=== PATIENT | male | born 1975 | race Caucasian/White ===

== ENCOUNTER 2024-01-08 10:19 | Emergency (ER) | payer BC, OTHER ==
[2024-01-08 10:30] VITALS: BP 156/92; PULSE 108; RESP 18; TEMP 97.8; BMI 25.7
[2024-01-08 11:41] LABS: BASO % 0.9 % (0-2.0); EOS % 1.4 % (0-4.5); HEMATOCRIT 45.2 % (35.4-49); HEMOGLOBIN 15.9 GM/dL (11.7-16.9); LYMPH % 24.8 % (8-40); MCH 32.2 pg (25.7-33.7); MCHC 35.1 g/dl (32.0-35.9); MEAN CELL VOLUME 91.7 fl (80-96); MEAN PLT VOLUME 6.8 fl (7.5-11.1); NEUT % 63.9 % (42.8-82.8); PLATELET COUNT 279 10^3/uL (134-434); RBC 4.94 M/mm3 (4.00-5.60); RDW 12.9 % (11.9-15.9); WHITE BLOOD COUNT 7.2 K/mm3 (4.0-10.0)
[2024-01-08 11:59] LABS: POTASSIUM 4.1 mmol/L (3.5-5.1)
[2024-01-08 12:02] LABS: ALBUMIN 3.4 g/dl (3.4-5.0); BLOOD UREA NITROGEN 5.1 mg/dL (7-18)
[2024-01-08 12:04] LABS: CREATININE 0.7 mg/dL (0.55-1.3)
[2024-01-08 12:07] LABS: BILIRUBIN,TOTAL 0.5 mg/dL (0.2-1); TOT PROT 7.6 g/dl (6.4-8.2)
[2024-01-08 12:17] LABS: ERYTHROCYTE SEDIMENTATION RATE 48 mm/hr (0-10)
[2024-01-08] MEDS ORDERED: CEFAZOLIN SODIUM 2 GM VIAL ONE ×2 (12:18→12:20)
[2024-01-08] MEDS ORDERED: CEFTRIAXONE 1 GM/50 ML BAG ONE (12:18)
[2024-01-08] MEDS: CEFAZOLIN SODIUM 2 GM in DEXTROSE 5%-WATER 100 ML IVPB ONE (12:22)
== END 2024-01-08 13:24 | disposition home or self-care (01) ==
LOC: JER 10:19
DX: L03.031 Cellulitis of right toe (principal)
CPT/HCPCS: 36415; 73630-TC-RT-FY; 80053; 82962; 85025; 85651; 86140; 87040; 87070; 87077; 87186; 87205; 99284-25

== ENCOUNTER 2024-01-31 21:28 | Emergency (ER) | payer BC, OTHER ==
[2024-01-31 21:37] VITALS: BP 128/98; PULSE 78; RESP 19; TEMP 98.6; BMI 25.7
== END 2024-01-31 22:38 | disposition home or self-care (01) ==
LOC: JERFT 21:28
DX: E11.621 Type 2 diabetes mellitus with foot ulcer (principal); L97.518 Non-pressure chronic ulcer of other part of right foot with other specified severity; Z48.00 Encounter for change or removal of nonsurgical wound dressing
CPT/HCPCS: 82962; 99283-25

== ENCOUNTER 2024-02-01 17:07 | Inpatient (IN) | payer BC, OTHER ==
[2024-02-01 18:32] LABS: BASO % 0.5 % (0-2.0); EOS % 1.3 % (0-4.5); HEMATOCRIT 43.3 % (35.4-49); HEMOGLOBIN 15.1 GM/dL (11.7-16.9); LYMPH % 18.4 % (8-40); MCH 32.6 pg (25.7-33.7); MCHC 34.8 g/dl (32.0-35.9); MEAN CELL VOLUME 93.6 fl (80-96); MONO % 9.6 % (3.8-10.2); NEUT % 70.2 % (42.8-82.8); PLATELET COUNT 248 10^3/uL (134-434); RBC 4.63 M/mm3 (4.00-5.60); RDW 12.8 % (11.9-15.9); WHITE BLOOD COUNT 8.1 K/mm3 (4.0-10.0)
[2024-02-01 18:38] LABS: INR 1.04 (0.83-1.09)
[2024-02-01 18:47] LABS: POTASSIUM 4.2 mmol/L (3.5-5.1)
[2024-02-01 18:48] LABS: CALCIUM 8.8 mg/dL (8.5-10.1)
[2024-02-01] MEDS ORDERED: VANCOMYCIN 1,000 MG in DEXTROSE 5%-WATER - 250 ML IVPB ONE (18:48)
[2024-02-01 18:49] LABS: BLOOD UREA NITROGEN 8.3 mg/dL (7-18)
[2024-02-01 18:52] LABS: CREATININE 0.7 mg/dL (0.55-1.3)
[2024-02-01 18:54] LABS: BILIRUBIN,TOTAL 0.7 mg/dL (0.2-1); TOT PROT 7.7 g/dl (6.4-8.2)
[2024-02-01] MEDS: PIPERACILLIN/TAZOB 4.5 GM 4.5 GM in DEXTROSE 5%-WATER 100 ML IVPB ONE (19:23)
[2024-02-01] MEDS: ACETAMINOPHEN 1000 MG/100 ML BAG IVPB ONE (19:23)
[2024-02-01] MEDS ORDERED: PIPERACILLIN/TAZOB 4.5 GM 4.5 GM/100 ML BAG IVPB ONE (19:23)
[2024-02-01 20:08] LABS: ERYTHROCYTE SEDIMENTATION RATE 72 mm/hr (0-10)
[2024-02-01] MEDS: VANCOMYCIN/WATER FOR INJ (PEG) 1,000 MG/200 ML BAG IVPB ONE (22:12)
[2024-02-02 00:21] VITALS: BMI 26.4
[2024-02-02 09:44] LABS: BASO % 0.6 % (0-2.0); EOS % 1.8 % (0-4.5); HEMATOCRIT 40.1 % (35.4-49); LYMPH % 24.1 % (8-40); MCH 32.8 pg (25.7-33.7); MCHC 34.9 g/dl (32.0-35.9); MEAN CELL VOLUME 93.9 fl (80-96); MEAN PLT VOLUME 7.3 fl (7.5-11.1); MONO % 9.1 % (3.8-10.2); NEUT % 64.4 % (42.8-82.8); PLATELET COUNT 242 10^3/uL (134-434); RBC 4.27 M/mm3 (4.00-5.60); RDW 12.5 % (11.9-15.9); WHITE BLOOD COUNT 8.1 K/mm3 (4.0-10.0)
[2024-02-02 10:57] LABS: ALBUMIN 2.6 g/dl (3.4-5.0); BLOOD UREA NITROGEN 7.9 mg/dL (7-18); CALCIUM 8.5 mg/dL (8.5-10.1)
[2024-02-02 10:58] LABS: MAGNESIUM 1.9 mg/dL (1.8-2.4)
[2024-02-02 11:00] LABS: CREATININE 0.7 mg/dL (0.55-1.3); PHOSPHOROUS 2.9 mg/dL (2.5-4.9)
[2024-02-02 11:02] LABS: BILIRUBIN,TOTAL 0.9 mg/dL (0.2-1); TOT PROT 7.1 g/dl (6.4-8.2)
[2024-02-02] MEDS: CEFAZOLIN 1 GM in DEXTROSE 5%-WATER - 50 ML IVPB SCH (14:10)
[2024-02-02] MEDS: COLLAGENASE CLOSTRIDIUM HIST. 30 GRAMS TUBE TP SCH (15:31)
[2024-02-02] MEDS: INSULIN ASPART SLIDING SCALE (NOVOLOG) 1 VIAL SQ SCH (21:27)
[2024-02-02] MEDS: INSULIN (LEVEMIR) 100 UNITS/ML UNITS SQ SCH (21:27)
[2024-02-03] MEDS: LEVOTHYROXINE NA 50 MCG TABLET (FP) PO SCH (06:33)
[2024-02-03] MEDS: INSULIN ASPART SLIDING SCALE (NOVOLOG) 1 VIAL SQ SCH (06:34)
[2024-02-03] MEDS: INSULIN (LEVEMIR) 100 UNITS/ML UNITS SQ SCH ×2 (06:35→21:24)
[2024-02-03] MEDS ORDERED: LEVOTHYROXINE NA 25 MCG TABLET (FP) PO SCH (07:00)
[2024-02-05] MEDS ORDERED: ACETAMINOPHEN 325 MG TABLET (FP) PO PRN (09:58)
[2024-02-05] MEDS: VANCOMYCIN/WATER 1250 MG 1,250 MG/250 ML BAG IVPB SCH (11:56)
[2024-02-05] MEDS: GABAPENTIN 300 MG CAPSULE PO SCH (13:40)
[2024-02-05] MEDS ORDERED: INSULIN ASPART SLIDING SCALE (NOVOLOG) 1 VIAL SQ ONE (16:49)
[2024-02-07] MEDS ORDERED: INSULIN (LEVEMIR) 100 UNITS/ML UNITS SQ ONE (08:54)
[2024-02-07] MEDS: INSULIN (LEVEMIR) 100 UNITS/ML UNITS SQ SCH ×2 (08:57→22:10)
[2024-02-07] MEDS ORDERED: LIDOCAINE HCL 1%, 10 MG/ML (20ML VIAL) ONE (15:45)
[2024-02-07] MEDS ORDERED: GENTAMICIN SO4 80 MG/2 ML VIAL ONE (15:45)
[2024-02-07] MEDS ORDERED: ONDANSETRON 4 MG/2 ML VIAL IVPUSH PRN ×2 (16:03→17:27)
[2024-02-07] MEDS ORDERED: MIDAZOLAM HCL 2 MG/2 ML SINGLE DOSE VIAL ONE (16:07)
[2024-02-07] MEDS ORDERED: ONDANSETRON 4 MG/2 ML VIAL ONE (16:07)
[2024-02-07] MEDS ORDERED: PROPOFOL 20 ML ONE (16:07)
[2024-02-07] MEDS ORDERED: KETOROLAC TROMETHAMINE 30 MG/1 ML VIAL ONE (16:44)
[2024-02-07] MEDS ORDERED: VANCOMYCIN 1,000 MG VIAL (RESTRICTED TO ID ONLY) ONE (16:45)
[2024-02-07] MEDS: VANCOMYCIN 1,000 MG VIAL (RESTRICTED TO ID ONLY) IVPB ONE (16:49)
[2024-02-07] MEDS: LIDOCAINE HCL 1%, 10 MG/ML (20ML VIAL) INF ONE (16:56)
[2024-02-07] MEDS: LACTATED RINGERS SOLUTION 1,000 ML IV SCH ×2 (17:09→20:02)
[2024-02-07 21:37] VITALS: RESP 18
[2024-02-07] MEDS: GABAPENTIN 300 MG CAPSULE PO SCH (22:04)
[2024-02-07] MEDS: INSULIN ASPART SLIDING SCALE (NOVOLOG) 1 VIAL SQ SCH (22:08)
[2024-02-07] MEDS: VANCOMYCIN/WATER 1250 MG 1,250 MG/250 ML BAG IVPB SCH (23:52)
[2024-02-08] MEDS: INSULIN (LEVEMIR) 100 UNITS/ML UNITS SQ SCH (06:21)
[2024-02-08] MEDS: LEVOTHYROXINE NA 50 MCG TABLET (FP) PO SCH (06:24)
[2024-02-09 10:20] LABS: HEMOGLOBIN 13.5 GM/dL (11.7-16.9); MCH 32.9 pg (25.7-33.7); MCHC 35.5 g/dl (32.0-35.9); MEAN CELL VOLUME 92.8 fl (80-96); MEAN PLT VOLUME 7.9 fl (7.5-11.1); PLATELET COUNT 264 10^3/uL (134-434); RDW 12.5 % (11.9-15.9); WHITE BLOOD COUNT 8.2 K/mm3 (4.0-10.0)
[2024-02-09 10:37] LABS: CALCIUM 8.8 mg/dL (8.5-10.1)
[2024-02-09 10:38] LABS: ALBUMIN 2.5 g/dl (3.4-5.0); BLOOD UREA NITROGEN 9.9 mg/dL (7-18)
[2024-02-09 10:41] LABS: CREATININE 0.7 mg/dL (0.55-1.3)
[2024-02-09 10:42] LABS: BILIRUBIN,TOTAL 0.8 mg/dL (0.2-1); TOT PROT 6.6 g/dl (6.4-8.2)
[2024-02-09] MEDS: DAPTOMYCIN 700 MG in SODIUM CHLORIDE 50 ML IVPB SCH (15:51)
[2024-02-09] MEDS ORDERED: INSULIN (LEVEMIR) 100 UNITS/ML UNITS SQ ONE (16:32)
[2024-02-09] MEDS: ACETAMINOPHEN 325 MG TABLET (FP) PO PRN (22:31)
[2024-02-10 09:16] VITALS: BP 145/85; PULSE 81; TEMP 97.7
== END 2024-02-10 12:56 | disposition home or self-care (01) | DRG 623 ==
LOC: JER 17:07 → JERBED 19:13 → J6S 20:08
PROVIDERS: ATTEND Family Medicine
PROC: 0JBQ0ZZ Excision of Right Foot Subcutaneous Tissue and Fascia, Open Approach (ICD-10-PCS; 2024-02-07)
PROC: 0QBQ0ZX Excision of Right Toe Phalanx, Open Approach, Diagnostic (ICD-10-PCS; 2024-02-07)
PROC: 0KBT0ZZ Excision of Left Lower Leg Muscle, Open Approach (ICD-10-PCS; 2024-02-07)
PROC: 0KBS0ZZ Excision of Right Lower Leg Muscle, Open Approach (ICD-10-PCS; 2024-02-07)
PROC: 0JBR0ZZ Excision of Left Foot Subcutaneous Tissue and Fascia, Open Approach (ICD-10-PCS; principal; 2024-02-07 15:00)
PROC: 05HY33Z Insertion of Infusion Device into Upper Vein, Percutaneous Approach (ICD-10-PCS; 2024-02-09)
DX: E11.621 Type 2 diabetes mellitus with foot ulcer (principal); L03.115 Cellulitis of right lower limb; M86.171 Other acute osteomyelitis, right ankle and foot; E11.69 Type 2 diabetes mellitus with other specified complication; E03.9 Hypothyroidism, unspecified; L97.519 Non-pressure chronic ulcer of other part of right foot with unspecified severity; L97.529 Non-pressure chronic ulcer of other part of left foot with unspecified severity; E11.65 Type 2 diabetes mellitus with hyperglycemia; E11.40 Type 2 diabetes mellitus with diabetic neuropathy, unspecified
CPT/HCPCS: 36415; 36569; 71045-TC-FY; 73630-TC-LT; 73630-TC-RT-FY; 73718-TC-RT; 80053; 80061; 82550; 82962; 83036; 83735; 84100; 84439; 84443; 84484; 85025; 85027; 85610; 85651; 85730; 86140; 86850; 86900; 86901; 87070; 87075; 87076; 87077; 87186; 87205; 88304-TC; 88311-TC; 93005; 93010; 93306-TC; 93926-TC; 94760; 99285-25; J0878

== ENCOUNTER 2024-02-17 11:51 | Inpatient (IN) | payer BC, OTHER ==
[2024-02-17 13:10] LABS: BASO % 0.8 % (0-2.0); EOS % 2.6 % (0-4.5); HEMATOCRIT 36.1 % (35.4-49); HEMOGLOBIN 12.4 GM/dL (11.7-16.9); LYMPH % 19.6 % (8-40); MCH 31.8 pg (25.7-33.7); MCHC 34.3 g/dl (32.0-35.9); MEAN CELL VOLUME 92.7 fl (80-96); PLATELET COUNT 287 10^3/uL (134-434); RBC 3.89 M/mm3 (4.00-5.60); RDW 12.6 % (11.9-15.9); WHITE BLOOD COUNT 7.6 K/mm3 (4.0-10.0)
[2024-02-17 13:19] LABS: INR 1.09 (0.83-1.09); PROTHROMBIN TIME (PATIENT) 12.5 SEC (9.7-13.0)
[2024-02-17 13:22] LABS: ACTIVATED PTT 30.8 SECONDS (25.2-36.5)
[2024-02-17 13:32] LABS: POTASSIUM 3.8 mmol/L (3.5-5.1)
[2024-02-17 13:34] LABS: CALCIUM 8.1 mg/dL (8.5-10.1)
[2024-02-17 13:35] LABS: ALBUMIN 2.5 g/dl (3.4-5.0)
[2024-02-17 13:38] LABS: CREATININE 0.9 mg/dL (0.55-1.3)
[2024-02-17 13:39] LABS: BILIRUBIN,TOTAL 0.4 mg/dL (0.2-1); TOT PROT 6.6 g/dl (6.4-8.2)
[2024-02-17 14:00] LABS: ERYTHROCYTE SEDIMENTATION RATE 89 mm/hr (0-10)
[2024-02-17] MEDS ORDERED: HEPARIN NA (PORCINE) 5,000 UNITS/ML 1ML VIAL ONE (14:00)
[2024-02-17] MEDS ORDERED: GABAPENTIN 300 MG CAPSULE ONE (14:00)
[2024-02-17] MEDS: HEPARIN NA (PORCINE) 5,000 UNITS/ML 1ML VIAL SQ SCH (14:06)
[2024-02-17] MEDS: GABAPENTIN 300 MG CAPSULE PO SCH (14:06)
[2024-02-17] MEDS ORDERED: CEFTRIAXONE 2 GM/100 ML BAG IVPB ONE (14:11)
[2024-02-17] MEDS: CEFTRIAXONE 2,000 MG in DEXTROSE 5%-WATER - 50 ML IVPB ONE (14:21)
[2024-02-17] MEDS: VANCOMYCIN PREMIX 1.5 GM 1,500 MG/300 ML BAG IVPB ONE (15:26)
[2024-02-17] MEDS: VANCOMYCIN 1,500 MG in DEXTROSE 5%-WATER - 250 ML IVPB ONE (17:05)
[2024-02-17] MEDS: INSULIN ASPART SLIDING SCALE (NOVOLOG) 1 VIAL SQ SCH (18:23)
[2024-02-17 22:40] VITALS: BMI 27.7
[2024-02-17] MEDS: ROSUVASTATIN CA 5 MG TABLET PO SCH (22:51)
[2024-02-17] MEDS: INSULIN (LEVEMIR) 100 UNITS/ML UNITS SQ SCH (22:54)
[2024-02-18] MEDS: LEVOTHYROXINE NA 50 MCG TABLET (FP) PO SCH (06:29)
[2024-02-18 07:28] LABS: EOS % 4.2 % (0-4.5); HEMOGLOBIN 12.2 GM/dL (11.7-16.9); LYMPH % 25.7 % (8-40); MCH 31.7 pg (25.7-33.7); MCHC 33.9 g/dl (32.0-35.9); MEAN CELL VOLUME 93.4 fl (80-96); MEAN PLT VOLUME 6.8 fl (7.5-11.1); MONO % 8.7 % (3.8-10.2); NEUT % 60.4 % (42.8-82.8); PLATELET COUNT 301 10^3/uL (134-434); RBC 3.85 M/mm3 (4.00-5.60); RDW 12.3 % (11.9-15.9); WHITE BLOOD COUNT 7.1 K/mm3 (4.0-10.0)
[2024-02-18 07:56] LABS: POTASSIUM 3.7 mmol/L (3.5-5.1)
[2024-02-18 07:59] LABS: CALCIUM 8.6 mg/dL (8.5-10.1)
[2024-02-18 08:00] LABS: ALBUMIN 2.6 g/dl (3.4-5.0)
[2024-02-18 08:01] LABS: BLOOD UREA NITROGEN 5.5 mg/dL (7-18)
[2024-02-18 08:03] LABS: CREATININE 0.7 mg/dL (0.55-1.3); PHOSPHOROUS 3.4 mg/dL (2.5-4.9)
[2024-02-18 08:04] LABS: TOT PROT 6.5 g/dl (6.4-8.2)
[2024-02-18 08:07] LABS: BILIRUBIN,TOTAL 0.8 mg/dL (0.2-1)
[2024-02-18] MEDS: CEFTRIAXONE 2 GM in DEXTROSE 5%-WATER 100 ML IVPB SCH (09:24)
[2024-02-18] MEDS: RAMIPRIL 2.5 MG CAPSULE PO SCH (09:36)
[2024-02-18] MEDS: COLLAGENASE CLOSTRIDIUM HIST. 30 GRAMS TUBE TP SCH (11:55)
[2024-02-18] MEDS: VANCOMYCIN/WATER 1250 MG 1,250 MG/250 ML BAG IVPB SCH (20:11)
[2024-02-20 07:49] LABS: BASO % 0.9 % (0-2.0); EOS % 4.8 % (0-4.5); HEMATOCRIT 37.2 % (35.4-49); HEMOGLOBIN 12.6 GM/dL (11.7-16.9); LYMPH % 24.7 % (8-40); MCH 31.3 pg (25.7-33.7); MCHC 33.9 g/dl (32.0-35.9); MEAN CELL VOLUME 92.5 fl (80-96); MEAN PLT VOLUME 6.9 fl (7.5-11.1); MONO % 8.6 % (3.8-10.2); PLATELET COUNT 299 10^3/uL (134-434); RBC 4.02 M/mm3 (4.00-5.60); RDW 12.3 % (11.9-15.9); WHITE BLOOD COUNT 7.2 K/mm3 (4.0-10.0)
[2024-02-20 07:53] LABS: INR 1.13 (0.83-1.09); PROTHROMBIN TIME (PATIENT) 12.9 SEC (9.7-13.0)
[2024-02-20 08:23] LABS: BLOOD UREA NITROGEN 4.7 mg/dL (7-18)
[2024-02-20 08:26] LABS: CREATININE 0.7 mg/dL (0.55-1.3)
[2024-02-20] MEDS ORDERED: LIDOCAINE HCL 1%, 10 MG/ML (20ML VIAL) ONE (13:04)
[2024-02-20] MEDS ORDERED: BUPIVACAINE HCL/PF 0.5% (5MG/ML) 10 ML VIAL ONE (13:04)
[2024-02-20] MEDS ORDERED: GENTAMICIN SO4 80 MG/2 ML VIAL ONE ×2 (13:14→15:01)
[2024-02-20] MEDS ORDERED: PROPOFOL 20 ML ONE ×3 (13:29→14:32)
[2024-02-20] MEDS ORDERED: MIDAZOLAM HCL 2 MG/2 ML SINGLE DOSE VIAL ONE (13:29)
[2024-02-20] MEDS: LIDOCAINE HCL 1%, 10 MG/ML (50 mL VIAL) INF ONE (13:53)
[2024-02-20] MEDS: BUPIVACAINE HCL/PF 0.5% (5 MG/ML) 30 ML VIAL IJ ONE (13:53)
[2024-02-20] MEDS ORDERED: ONDANSETRON 4 MG/2 ML VIAL IVPUSH PRN (14:40)
[2024-02-20] MEDS: LACTATED RINGERS SOLUTION 1,000 ML IV SCH (16:10)
[2024-02-20 17:38] LABS: BASO % 0.9 % (0-2.0); EOS % 4.5 % (0-4.5); HEMATOCRIT 37.9 % (35.4-49); HEMOGLOBIN 12.8 GM/dL (11.7-16.9); MCH 31.5 pg (25.7-33.7); MCHC 33.8 g/dl (32.0-35.9); MEAN PLT VOLUME 7.4 fl (7.5-11.1); MONO % 6.4 % (3.8-10.2); NEUT % 65.2 % (42.8-82.8); PLATELET COUNT 306 10^3/uL (134-434); RBC 4.08 M/mm3 (4.00-5.60); RDW 12.5 % (11.9-15.9); WHITE BLOOD COUNT 7.2 K/mm3 (4.0-10.0)
[2024-02-20] MEDS: INSULIN ASPART SLIDING SCALE (NOVOLOG) 1 VIAL SQ SCH (17:38)
[2024-02-20] MEDS: VANCOMYCIN/WATER 1250 MG 1,250 MG/250 ML BAG IVPB SCH (19:02)
[2024-02-20] MEDS: ROSUVASTATIN CA 5 MG TABLET PO SCH (21:29)
[2024-02-20] MEDS: INSULIN (LEVEMIR) 100 UNITS/ML UNITS SQ SCH (21:29)
[2024-02-20] MEDS: GABAPENTIN 300 MG CAPSULE PO SCH (21:29)
[2024-02-21] MEDS: LEVOTHYROXINE NA 50 MCG TABLET (FP) PO SCH (06:24)
[2024-02-21] MEDS: HEPARIN NA (PORCINE) 5,000 UNITS/ML 1ML VIAL SQ SCH (10:09)
[2024-02-21] MEDS: CEFTRIAXONE 2 GM in DEXTROSE 5%-WATER 100 ML IVPB SCH (10:09)
[2024-02-21] MEDS: RAMIPRIL 2.5 MG CAPSULE PO SCH (10:09)
[2024-02-21] MEDS: COLLAGENASE CLOSTRIDIUM HIST. 30 GRAMS TUBE TP SCH (10:10)
[2024-02-23 11:30] LABS: BASO % 0.7 % (0-2.0); HEMATOCRIT 36.2 % (35.4-49); HEMOGLOBIN 12.3 GM/dL (11.7-16.9); LYMPH % 17.1 % (8-40); MCH 31.4 pg (25.7-33.7); MEAN CELL VOLUME 92.2 fl (80-96); MEAN PLT VOLUME 7.7 fl (7.5-11.1); MONO % 9.2 % (3.8-10.2); PLATELET COUNT 230 10^3/uL (134-434); RBC 3.93 M/mm3 (4.00-5.60); RDW 12.3 % (11.9-15.9)
[2024-02-23 15:19] VITALS: RESP 18
[2024-02-24 08:48] VITALS: BP 132/74; PULSE 76; TEMP 98.1
[2024-02-24] MEDS ORDERED: ACETAMINOPHEN 325 MG TABLET (FP) PO PRN (10:47)
== END 2024-02-24 11:30 | disposition home or self-care (01) | DRG 617 ==
LOC: JER 11:51 → JERBED 13:33 → J7W 20:43
PROVIDERS: ADMIT Internal Medicine; ATTEND Internal Medicine
PROC: 0Y6P0Z1 Detachment at Right 1st Toe, High, Open Approach (ICD-10-PCS; principal; 2024-02-20 14:15)
DX: E11.69 Type 2 diabetes mellitus with other specified complication (principal); E11.52 Type 2 diabetes mellitus with diabetic peripheral angiopathy with gangrene; L97.918 Non-pressure chronic ulcer of unspecified part of right lower leg with other specified severity; M86.671 Other chronic osteomyelitis, right ankle and foot; Q25.1 Coarctation of aorta; E11.622 Type 2 diabetes mellitus with other skin ulcer; I10 Essential (primary) hypertension; E78.5 Hyperlipidemia, unspecified; E03.9 Hypothyroidism, unspecified; R60.9 Edema, unspecified
CPT/HCPCS: 36415; 73630-TC-RT-FY; 73660-TC-FY; 73718-TC-RT; 80048; 80053; 82962; 83735; 84100; 84443; 85025; 85610; 85651; 85730; 86140; 86850; 86900; 86901; 87070; 87075; 87205; 88305-TC; 88311-TC; 93005; 93010; 93971-TC; 94760; 99285-25; J1644

== ENCOUNTER 2024-05-11 14:15 | Emergency (ER) | payer BC, OTHER ==
[2024-05-11 14:42] VITALS: PULSE 88; RESP 18; TEMP 98.2; BMI 26.4
[2024-05-11] MEDS ORDERED: RAMIPRIL 5 MG CAPSULE ONE (14:54)
[2024-05-11] MEDS: RAMIPRIL 2.5 MG CAPSULE PO ONE (15:29)
[2024-05-11 16:23] VITALS: BP 154/82
== END 2024-05-11 16:23 | disposition home or self-care (01) ==
LOC: JER 14:15
DX: I10 Essential (primary) hypertension (principal)
CPT/HCPCS: 82962; 93005; 93010; 99283-25; G0277

== ENCOUNTER 2024-08-09 10:43 | Observation (INO) | payer BC, OTHER ==
[2024-08-09 10:55] VITALS: BMI 26.4
[2024-08-09 11:47] LABS: BASO % 0.8 % (0-2.0); EOS % 1.3 % (0-4.5); HEMATOCRIT 41.7 % (35.4-49); HEMOGLOBIN 14.2 GM/dL (11.7-16.9); LYMPH % 22.3 % (8-40); MCH 31.3 pg (25.7-33.7); MCHC 34.1 g/dl (32.0-35.9); MEAN CELL VOLUME 91.9 fl (80-96); MEAN PLT VOLUME 6.2 fl (7.5-11.1); MONO % 7.4 % (3.8-10.2); NEUT % 68.2 % (42.8-82.8); PLATELET COUNT 290 10^3/uL (134-434); RBC 4.54 M/mm3 (4.00-5.60); RDW 13.1 % (11.9-15.9); WHITE BLOOD COUNT 8.2 K/mm3 (4.0-10.0)
[2024-08-09 11:53] LABS: INR 1.05 (0.83-1.09); PROTHROMBIN TIME (PATIENT) 11.6 SEC (9.7-13.0)
[2024-08-09 11:56] LABS: ACTIVATED PTT 30.8 SECONDS (25.2-36.5)
[2024-08-09 12:16] LABS: POTASSIUM 4.1 mmol/L (3.5-5.1)
[2024-08-09 12:20] LABS: CALCIUM 9.2 mg/dL (8.5-10.1); ERYTHROCYTE SEDIMENTATION RATE 83 mm/hr (0-10)
[2024-08-09 12:21] LABS: ALBUMIN 2.8 g/dl (3.4-5.0); BLOOD UREA NITROGEN 11.5 mg/dL (7-18)
[2024-08-09 12:24] LABS: CREATININE 0.8 mg/dL (0.55-1.3)
[2024-08-09 12:25] LABS: BILIRUBIN,TOTAL 0.8 mg/dL (0.2-1)
[2024-08-10] MEDS: LEVOTHYROXINE NA 50 MCG TABLET (FP) PO SCH (06:10)
[2024-08-10 08:09] LABS: POTASSIUM 4.2 mmol/L (3.5-5.1)
[2024-08-10 08:12] LABS: ALBUMIN 2.7 g/dl (3.4-5.0); CALCIUM 8.7 mg/dL (8.5-10.1)
[2024-08-10 08:14] LABS: BLOOD UREA NITROGEN 12.6 mg/dL (7-18)
[2024-08-10 08:16] LABS: CREATININE 0.8 mg/dL (0.55-1.3)
[2024-08-10 08:17] LABS: BILIRUBIN,TOTAL 0.9 mg/dL (0.2-1); TOT PROT 6.9 g/dl (6.4-8.2)
[2024-08-10 08:25] LABS: BASO % 0.7 % (0-2.0); EOS % 2.2 % (0-4.5); HEMATOCRIT 40.5 % (35.4-49); HEMOGLOBIN 13.9 GM/dL (11.7-16.9); LYMPH % 25.6 % (8-40); MCH 31.6 pg (25.7-33.7); MCHC 34.2 g/dl (32.0-35.9); MEAN CELL VOLUME 92.4 fl (80-96); MONO % 7.9 % (3.8-10.2); NEUT % 63.6 % (42.8-82.8); PLATELET COUNT 283 10^3/uL (134-434); RBC 4.38 M/mm3 (4.00-5.60); RDW 12.7 % (11.9-15.9); WHITE BLOOD COUNT 8.5 K/mm3 (4.0-10.0)
[2024-08-10] MEDS ORDERED: LEVOTHYROXINE NA 75 MCG TABLET (FP) PO SCH (08:27)
[2024-08-10] MEDS: RAMIPRIL 2.5 MG CAPSULE PO SCH (09:12)
[2024-08-10] MEDS ORDERED: ONDANSETRON 4 MG/2 ML VIAL IVPUSH PRN ×2 (09:34→10:44)
[2024-08-10] MEDS ORDERED: oxyCODONE HCL 5 MG TABLET PO PRN ×2 (09:34→10:44)
[2024-08-10] MEDS ORDERED: MIDAZOLAM HCL 2 MG/2 ML SINGLE DOSE VIAL ONE (09:40)
[2024-08-10] MEDS ORDERED: PROPOFOL 20 ML ONE (09:46)
[2024-08-10] MEDS ORDERED: LIDOCAINE HCL 2% (20ML MULTI-DOSE VIAL) ONE ×2 (09:49→09:52)
[2024-08-10] MEDS ORDERED: BUPIVACAINE HCL/PF 0.5% (5MG/ML) 10 ML VIAL ONE (09:49)
[2024-08-10] MEDS: LIDOCAINE HCL 1%, 10 MG/ML (20ML VIAL) NR ONE ×2 (10:01)
[2024-08-10] MEDS: BUPIVACAINE HCL/PF 0.5% (5MG/ML) 10 ML VIAL IJ ONE ×2 (10:01)
[2024-08-10] MEDS: LACTATED RINGERS SOLUTION 1,000 ML IV SCH (10:43)
[2024-08-10] MEDS ORDERED: LACTATED RINGERS SOLUTION 1,000 ML IV SCH (10:44)
[2024-08-10 14:56] VITALS: BP 142/84; PULSE 80; RESP 18; TEMP 97.7
[2024-08-11] MEDS ORDERED: LEVOTHYROXINE NA 75 MCG TABLET (FP) PO SCH (07:00)
[2024-08-11] MEDS ORDERED: RAMIPRIL 2.5 MG CAPSULE PO SCH (10:00)
== END 2024-08-10 17:13 | disposition home or self-care (01) ==
LOC: JER 10:43 → JERBED 14:42 → J8W 18:01
PROVIDERS: ADMIT Internal Medicine; ATTEND Internal Medicine
PROC: 3E0337Z Introduction of Electrolytic and Water Balance Substance into Peripheral Vein, Percutaneous Approach (ICD-10-PCS; 2024-08-09)
PROC: 0QBR3ZX Excision of Left Toe Phalanx, Percutaneous Approach, Diagnostic (ICD-10-PCS; principal; 2024-08-10 08:00)
DX: M86.9 Osteomyelitis, unspecified (principal); L98.499 Non-pressure chronic ulcer of skin of other sites with unspecified severity; I10 Essential (primary) hypertension; E78.5 Hyperlipidemia, unspecified; E11.622 Type 2 diabetes mellitus with other skin ulcer; Z72.0 Tobacco use
CPT/HCPCS: 36415; 73630-TC-LT; 80053; 83036; 84443; 85025; 85610; 85651; 85730; 86140; 86850; 86900; 86901; 87040; 87070; 87075; 93005; 93010; 99285-25; G0378

== ENCOUNTER 2024-09-19 09:09 | Inpatient (IN) | payer BC, OTHER ==
[2024-09-19 09:17] VITALS: BMI 25.0
[2024-09-19] MEDS ORDERED: ACETAMINOPHEN INJECTION 100 ML ONE (10:10)
[2024-09-19] MEDS: ACETAMINOPHEN 1000 MG/100 ML BAG IVPB ONE (11:34)
[2024-09-19 12:22] LABS: EPI CELLS 6 /uL (0-25.1); HYALINE CASTS 2 /uL (0-3.1); URINE APPEARANCE CLEAR; URINE BACTERIA 3 /uL (0-1359); URINE BILIRUBIN NEGATIVE (NEGATIVE); URINE COLOR YELLOW; URINE GLUCOSE (UA) NEGATIVE (NEGATIVE); URINE KETONE TRACE (NEGATIVE); URINE LEUK ESTERASE NEGATIVE (NEGATIVE); URINE NITRITE NEGATIVE (NEGATIVE); URINE PROTEIN 3+ (NEGATIVE); URINE RBC 353 /uL (0-23.9); URINE WBC 15 /uL (0-25.8)
[2024-09-19 12:36] LABS: POTASSIUM 4.1 mmol/L (3.5-5.1)
[2024-09-19 12:40] LABS: BLOOD UREA NITROGEN 9.2 mg/dL (7-18); CALCIUM 9.3 mg/dL (8.5-10.1)
[2024-09-19 12:41] LABS: ALBUMIN 3.5 g/dl (3.4-5.0)
[2024-09-19 12:44] LABS: CREATININE 0.9 mg/dL (0.55-1.3)
[2024-09-19 12:45] LABS: BILIRUBIN,TOTAL 0.9 mg/dL (0.2-1); TOT PROT 8.1 g/dl (6.4-8.2)
[2024-09-19 12:55] LABS: ABSOLUTE IMMATURE GRANULOCYTES 0.04 x10^3/uL (0.0-0.031); EOSINOPHIL % 0.8 % (0.8-7.0); EOSINOPHILS # 0.11 x10^3/uL (0.04-0.54); HEMATOCRIT 49.3 % (40.1-51.0); HEMOGLOBIN 16.5 g/dL (13.7-17.5); MCHC 33.5 g/dl (32.3-36.5); MEAN CELL VOLUME 93.2 fl (79.0-92.2); MEAN PLT VOLUME 9.6 fl (9.4-12.4); MONOCYTE # 1.17 x10^3/uL (0.30-0.82); MONOCYTE % 8.3 % (5.3-12.2); PLATELET COUNT 275 x10^3/uL (163-337); RDW 12.7 % (12.1-15.9)
[2024-09-19 13:53] LABS: ERYTHROCYTE SEDIMENTATION RATE 58 mm/hr (0-20)
[2024-09-19] MEDS: CEFTRIAXONE 1,000 MG in DEXTROSE 5%-WATER - 50 ML IVPB ONE (15:37)
[2024-09-19] MEDS ORDERED: PIPERACILLIN/TAZOB 4.5 GM 4.5 GM/100 ML BAG IVPB ONE ×2 (15:38→17:30)
[2024-09-19] MEDS: PIPERACILLIN/TAZOB 4.5 GM 4.5 GM/100 ML BAG IVPB ONE (15:42)
[2024-09-19] MEDS ORDERED: ONDANSETRON 4 MG/2 ML VIAL IVPUSH PRN ×4 (17:15→18:42)
[2024-09-19] MEDS ORDERED: MIDAZOLAM HCL 2 MG/2 ML SINGLE DOSE VIAL ONE (17:17)
[2024-09-19] MEDS ORDERED: PROPOFOL 20 ML ONE (17:17)
[2024-09-19] MEDS: INSULIN (NOVOLOG) ASPART 100 UNITS/ML 10ML VIAL SQ SCH ×2 (17:24→21:06)
[2024-09-19] MEDS ORDERED: VANCOMYCIN/WATER 1250 MG 1,250 MG/250 ML BAG IVPB ONE (17:30)
[2024-09-19] MEDS: VANCOMYCIN/WATER 1250 MG 1,250 MG/250 ML BAG IVPB SCH (17:37)
[2024-09-19] MEDS: LACTATED RINGERS SOLUTION 1,000 ML IV SCH ×2 (17:37→19:59)
[2024-09-19] MEDS: PIPERACILLIN/TAZOBACTAM 4.5 GM VIAL IVPB ONE (18:05)
[2024-09-19] MEDS ORDERED: ACETAMINOPHEN 1000 MG/100 ML BAG IVPB PRN (18:22)
[2024-09-19] MEDS: ACETAMINOPHEN 1000 MG/100 ML BAG IVPB PRN (20:19)
[2024-09-19] MEDS: GABAPENTIN 300 MG CAPSULE PO SCH (21:06)
[2024-09-19] MEDS: ROSUVASTATIN CA 5 MG TABLET PO SCH (21:06)
[2024-09-19] MEDS ORDERED: GABAPENTIN 300 MG CAPSULE PO SCH (22:00)
[2024-09-19] MEDS ORDERED: ROSUVASTATIN CA 5 MG TABLET PO SCH (22:00)
[2024-09-20] MEDS: PIPERACILLIN/TAZOB 4.5 GM 4.5 GM/100 ML BAG IVPB SCH ×2 (01:53→16:45)
[2024-09-20] MEDS ORDERED: LEVOTHYROXINE NA 75 MCG TABLET (FP) PO SCH (07:00)
[2024-09-20 09:13] LABS: ABSOLUTE IMMATURE GRANULOCYTES 0.06 x10^3/uL (0.0-0.031); BASOPHILS # 0.07 x10^3/uL (0.01-0.08); EOSINOPHIL % 2.9 % (0.8-7.0); EOSINOPHILS # 0.29 x10^3/uL (0.04-0.54); HEMATOCRIT 42.2 % (40.1-51.0); HEMOGLOBIN 13.9 g/dL (13.7-17.5); MCHC 32.9 g/dl (32.3-36.5); MEAN CELL VOLUME 93.6 fl (79.0-92.2); MEAN PLT VOLUME 9.1 fl (9.4-12.4); MONOCYTE # 0.89 x10^3/uL (0.30-0.82); MONOCYTE % 8.9 % (5.3-12.2); PLATELET COUNT 217 x10^3/uL (163-337); RDW 13.2 % (12.1-15.9)
[2024-09-20 09:42] LABS: POTASSIUM 3.8 mmol/L (3.5-5.1)
[2024-09-20] MEDS: LEVOTHYROXINE NA 75 MCG TABLET (FP) PO SCH (09:43)
[2024-09-20] MEDS: RAMIPRIL 2.5 MG CAPSULE PO SCH (09:43)
[2024-09-20] MEDS ORDERED: RAMIPRIL 2.5 MG CAPSULE PO SCH (10:00)
[2024-09-20 10:04] LABS: CALCIUM 8.7 mg/dL (8.5-10.1)
[2024-09-20 10:05] LABS: MAGNESIUM 1.9 mg/dL (1.8-2.4)
[2024-09-20 10:07] LABS: ALBUMIN 2.8 g/dl (3.4-5.0)
[2024-09-20 10:08] LABS: CREATININE 0.9 mg/dL (0.55-1.3); PHOSPHOROUS 3.9 mg/dL (2.5-4.9)
[2024-09-20 10:09] LABS: BILIRUBIN,TOTAL 0.7 mg/dL (0.2-1); TOT PROT 6.7 g/dl (6.4-8.2)
[2024-09-20] MEDS ORDERED: INSULIN ASPART SLIDING SCALE (NOVOLOG) 1 VIAL SQ ONE (11:59)
[2024-09-20] MEDS ORDERED: VANCOMYCIN/WATER 1250 MG 1,250 MG/250 ML BAG IVPB SCH (16:30)
[2024-09-20] MEDS: oxyCODONE HCL 5 MG TABLET PO PRN (20:43)
[2024-09-21 11:40] LABS: ABSOLUTE IMMATURE GRANULOCYTES 0.04 x10^3/uL (0.0-0.031); BASOPHILS # 0.07 x10^3/uL (0.01-0.08); EOSINOPHIL % 4.2 % (0.8-7.0); EOSINOPHILS # 0.37 x10^3/uL (0.04-0.54); HEMATOCRIT 38.9 % (40.1-51.0); HEMOGLOBIN 12.8 g/dL (13.7-17.5); MCHC 32.9 g/dl (32.3-36.5); MEAN CELL VOLUME 94.4 fl (79.0-92.2); MEAN PLT VOLUME 9.3 fl (9.4-12.4); PLATELET COUNT 245 x10^3/uL (163-337); RDW 13.2 % (12.1-15.9)
[2024-09-21] MEDS ORDERED: INSULIN ASPART SLIDING SCALE (NOVOLOG) 1 VIAL SQ ONE (15:48)
[2024-09-23] MEDS ORDERED: INSULIN ASPART SLIDING SCALE (NOVOLOG) 1 VIAL SQ ONE (21:18)
[2024-09-24 12:08] VITALS: RESP 18
[2024-09-24] MEDS ORDERED: INSULIN ASPART SLIDING SCALE (NOVOLOG) 1 VIAL SQ ONE (21:20)
[2024-09-25 09:36] VITALS: BP 139/76; PULSE 72; TEMP 97.7
[2024-09-25] MEDS: ENOXAPARIN NA (PORCINE) 40 MG/0.4 ML DISP.SYRIN SQ SCH (09:36)
[2024-09-25] MEDS: CLOTRIMAZOLE 1% CREAM TP SCH (11:39)
== END 2024-09-25 12:41 | disposition home or self-care (01) | DRG 717 ==
LOC: JER 09:09 → JERBED 15:48 → J8W 19:47
PROVIDERS: ADMIT Internal Medicine; ATTEND Internal Medicine
PROC: 0V950ZZ Drainage of Scrotum, Open Approach (ICD-10-PCS; principal; 2024-09-19 18:00)
DX: N49.2 Inflammatory disorders of scrotum (principal); M86.671 Other chronic osteomyelitis, right ankle and foot; E11.9 Type 2 diabetes mellitus without complications; E78.5 Hyperlipidemia, unspecified; I10 Essential (primary) hypertension; E03.9 Hypothyroidism, unspecified
CPT/HCPCS: 36415; 72193-TC; 76870-TC; 80053; 81003; 82962; 83735; 84100; 85025; 85651; 86140; 87070; 87076; 87086; 87205; 87491; 87591; 94760; 99285-25; J0131; Q9967